=== PATIENT | male | born 1950 | race Caucasian/White ===

== ENCOUNTER 2018-03-01 08:42 | Inpatient (IN) | payer MEDICARE, MEDICAID ==
[~2018-03-01] VITALS: Ht 165.1 cm; Wt 106.4 kg
[2018-03-01 09:29] LABS: CHLORIDE 107 mEq/L (98-107); INR 1.1; PROTHROMBIN TIME 11.7 sec (9.4-11.6)
[2018-03-01 09:30] LABS: HEMATOCRIT. 34.9 % (42.0-52.0); HEMOGLOBIN. 11.7 g/dL (14.0-18.0); MEAN CORPUSCULAR HEMOGLOBIN 30.5 pg (28.0-32.0); MEAN CORPUSCULAR VOLUME 91.4 fL (80.0-94.0); PLATELET 289 x1000/uL (130-400); RED BLOOD CELL COUNT 3.82 mill/uL (4.7-6.1); RED CELL DISTRIBUTION WIDTH 14.7 % (11.6-14.6)
[2018-03-01 10:31] LABS: PLATELET ESTIMATE NORMAL
[2018-03-01] MEDS ORDERED: CALCIUM CHLORIDE 1GM/10ML SYR IV NR (11:15)
[2018-03-01] MEDS ORDERED: SODIUM BICARBONATE 8.4% 1 MEQ/ML 50ML SYR IV NR (11:15)
[2018-03-01] MEDS ORDERED: FUROSEMIDE 100MG/10ML VIAL IVP NR (11:15)
[2018-03-01] MEDS ORDERED: DEXTROSE 50% WATER 50ML SYRINGE IV NR (11:15)
[2018-03-01] MEDS ORDERED: INSULIN REGULAR (HUMULIN R) 300UNITS/3ML IV NR (11:15)
[2018-03-01 12:38] LABS: CLARITY URINE CLEAR (CLEAR); COLOR URINE YELLOW (YELLOW); KETONES URINE NEGATIVE (NEGATIVE); LEUKOCYTE ESTERASE URINE NEGATIVE (NEGATIVE); NITRITE URINE NEGATIVE (NEGATIVE); OCCULT BLOOD URINE NEGATIVE (NEGATIVE); PROTEIN URINE 2+ (NEGATIVE); SPECIFIC GRAVITY URINE 1.018 (1.005-1.030)
[2018-03-01] MEDS ORDERED: PANT40TA4 PO (15:13)
[2018-03-01] MEDS ORDERED: SPIR25TA4 PO (15:13)
[2018-03-01] MEDS ORDERED: FURO20TA4 PO (15:13)
[2018-03-01] MEDS ORDERED: AMIO100T4 PO (15:14)
[2018-03-01] MEDS ORDERED: CLOP75TA33 PO (15:14)
[2018-03-01] MEDS ORDERED: ISOS30TA6 PO (15:15)
[2018-03-01] MEDS ORDERED: CARV6.2548 PO (15:15)
[2018-03-01] MEDS ORDERED: GLIP5TAB12 PO (15:15)
[2018-03-01] MEDS ORDERED: ASPI-1159 PO (15:16)
[2018-03-01] MEDS ORDERED: TAMS0.4C31 PO (15:16)
[2018-03-01] MEDS ORDERED: ATOR40TA70 PO (15:17)
[2018-03-01] MEDS ORDERED: DOCU-150 PO (15:17)
[2018-03-01] MEDS ORDERED: SACU1TAB PO (15:17)
[2018-03-01 15:59] VITALS: BP 132/84
[2018-03-01 16:00] VITALS: BP 132/84
[2018-03-01] MEDS: CLOPIDOGREL 75MG TABLET PO SCH (17:00)
[2018-03-01 18:00] VITALS: BP 139/86
[2018-03-01] MEDS: FUROSEMIDE 40MG/4ML VIAL IVP SCH (18:06)
[2018-03-01] MEDS ORDERED: MAGNESIUM/ALUMINUM HYDROXIDE/SIMETHICONE 30ML UDC PO PRN (20:45)
[2018-03-01] MEDS ORDERED: CLONIDINE 0.1MG TABLET PO PRN (20:45)
[2018-03-01] MEDS ORDERED: DEXTROSE 50% WATER 50ML SYRINGE IV PRN (20:45)
[2018-03-01] MEDS ORDERED: DIPHENHYDRAMINE 50MG/ML VIAL IV PRN (20:45)
[2018-03-01] MEDS ORDERED: ONDANSETRON HCL 4MG/2ML VIAL IV PRN (20:45)
[2018-03-01] MEDS ORDERED: ACETAMINOPHEN 325MG TABLET PO PRN (20:45)
[2018-03-01] MEDS: INSULIN LISPRO 100 UNITS/ML SUBCUT SCH (21:00)
[2018-03-01] MEDS: SODIUM CHLORIDE 0.9% INJ 3ML FLUSH IVF SCH (21:42)
[2018-03-01] MEDS: CARVEDILOL 6.25 MG TABLET PO SCH (21:42)
[2018-03-01] MEDS: ATORVASTATIN CALCIUM 40MG TABLET PO SCH (21:42)
[2018-03-01] MEDS: BLOOD SUGAR DIAGNOSTIC STRIP TEST SCH (21:43)
[2018-03-01 22:00] VITALS: BP_SYST 118; BP_SYST 122; BP_DIAS 68; BP_DIAS 79
[2018-03-02] VITALS (12 sets, daily range): BP systolic 90–146; BP diastolic 50–99
[2018-03-02] MEDS: SODIUM CHLORIDE 0.9% INJ 3ML FLUSH IVF SCH ×3 (06:26→21:14)
[2018-03-02] MEDS: GLIPIZIDE 5MG TABLET PO SCH ×2 (06:27→16:20)
[2018-03-02] MEDS: INSULIN LISPRO 100 UNITS/ML SUBCUT SCH ×4 (06:27→21:00)
[2018-03-02] MEDS: BLOOD SUGAR DIAGNOSTIC STRIP TEST SCH ×4 (06:27→21:13)
[2018-03-02] MEDS: PANTOPRAZOLE 40MG DR TABLET PO SCH (06:27)
[2018-03-02] MEDS: AMIODARONE HCL 200 MG TABLET PO SCH (08:11)
[2018-03-02] MEDS: FUROSEMIDE 40MG/4ML VIAL IVP SCH ×2 (08:11→16:20)
[2018-03-02] MEDS: TAMSULOSIN HCL 0.4MG SR CAPSULE PO SCH (08:11)
[2018-03-02] MEDS: ASPIRIN 81MG EC TABLET PO SCH (08:11)
[2018-03-02] MEDS: ISOSORBIDE MONONITRATE 30MG TABLET SR 24HR PO SCH (08:12)
[2018-03-02] MEDS: CARVEDILOL 6.25 MG TABLET PO SCH ×2 (08:12→21:00)
[2018-03-02] MEDS: DOCUSATE SODIUM 100MG CAPSULE PO SCH ×2 (08:12→16:20)
[2018-03-02] MEDS: CLOPIDOGREL 75MG TABLET PO SCH (08:12)
[2018-03-02] MEDS: SPIRONOLACTONE 25MG TABLET PO SCH (08:12)
[2018-03-02 08:16] LABS: CHLORIDE 106 mEq/L (98-107)
[2018-03-02 08:27] LABS: BASOPHILS % 0.4 % (0.0-2.0); EOSINOPHILS % 3.6 % (0.0-5.0); HEMATOCRIT. 32.8 % (42.0-52.0); HEMOGLOBIN. 10.9 g/dL (14.0-18.0); MEAN CORPUSCULAR HEMOGLOBIN 29.8 pg (28.0-32.0); MEAN CORPUSCULAR VOLUME 90.1 fL (80.0-94.0); MEAN PLATELET VOLUME 7.1 fl (7.4-10.4); MONOCYTES % 9.5 % (2.0-8.0); NEUTROPHILS % 73.5 % (40.0-76.0); PLATELET 268 x1000/uL (130-400); RED BLOOD CELL COUNT 3.64 mill/uL (4.7-6.1); RED CELL DISTRIBUTION WIDTH 14.7 % (11.6-14.6)
[2018-03-02 08:35] LABS: CREATINE KINASE MB FRACTION 1.6 ng/mL (0.5-3.6); LDL CHOLESTEROL 126 mg/dL (5-100)
[2018-03-02 08:36] LABS: CREATINE KINASE 91 IU/L (39-308); HDL CHOLESTEROL 29 mg/dL (40-59)
[2018-03-02] MEDS ORDERED: ASPIRIN 81MG EC TABLET PO SCH (09:00)
[2018-03-02] MEDS ORDERED: CLOPIDOGREL 75MG TABLET PO SCH (09:00)
[2018-03-02] MEDS ORDERED: SPIRONOLACTONE 5MG/ML 1ML ORAL SYR(NEO) PO SCH (09:00)
[2018-03-02] MEDS ORDERED: CARVEDILOL 6.25 MG TABLET PO SCH (09:00)
[2018-03-02 12:55] LABS: *AMPHETAMINES SCREEN URINE NEGATIVE (NEGATIVE); *BARBITURATES SCREEN URINE NEGATIVE (NEGATIVE); *BENZODIAZEPINES SCREEN URINE NEGATIVE (NEGATIVE); *COCAINE SCREEN URINE NEGATIVE (NEGATIVE)
[2018-03-02 12:56] LABS: CANNABINOID URINE SCREEN NEGATIVE (NEGATIVE); METHADONE URINE SCREEN NEGATIVE (NEGATIVE); OPIATES URINE SCREEN NEGATIVE (NEGATIVE); PHENCYCLIDINE URINE SCREEN NEGATIVE (NEGATIVE)
[2018-03-02] MEDS: CEPHALEXIN 250MG CAPSULE PO SCH (17:14)
[2018-03-02] MEDS: ATORVASTATIN CALCIUM 40MG TABLET PO SCH (21:13)
[2018-03-03] VITALS (11 sets, daily range): BP systolic 108–137; BP diastolic 48–102
[2018-03-03] MEDS: CEPHALEXIN 250MG CAPSULE PO SCH ×4 (00:25→17:25)
[2018-03-03] MEDS: SODIUM CHLORIDE 0.9% INJ 3ML FLUSH IVF SCH ×3 (05:56→21:12)
[2018-03-03] MEDS: GLIPIZIDE 5MG TABLET PO SCH ×2 (05:57→16:29)
[2018-03-03] MEDS: BLOOD SUGAR DIAGNOSTIC STRIP TEST SCH ×4 (05:57→21:12)
[2018-03-03] MEDS: PANTOPRAZOLE 40MG DR TABLET PO SCH (05:57)
[2018-03-03] MEDS: INSULIN LISPRO 100 UNITS/ML SUBCUT SCH ×4 (06:21→21:00)
[2018-03-03 07:24] LABS: BASOPHILS % 0.6 % (0.0-2.0); EOSINOPHILS % 3.4 % (0.0-5.0); HEMATOCRIT. 32.8 % (42.0-52.0); LYMPHOCYTES % 15.3 % (20.0-50.0); MEAN CORPUSCULAR HEMOGLOBIN 29.8 pg (28.0-32.0); MEAN CORPUSCULAR VOLUME 89.4 fL (80.0-94.0); MONOCYTES % 10.1 % (2.0-8.0); NEUTROPHILS % 70.6 % (40.0-76.0); PLATELET 271 x1000/uL (130-400); RED BLOOD CELL COUNT 3.67 mill/uL (4.7-6.1); RED CELL DISTRIBUTION WIDTH 14.7 % (11.6-14.6)
[2018-03-03 07:54] LABS: CHLORIDE 105 mEq/L (98-107)
[2018-03-03] MEDS: FUROSEMIDE 40MG/4ML VIAL IVP SCH ×2 (08:03→16:29)
[2018-03-03] MEDS: CARVEDILOL 6.25 MG TABLET PO SCH ×2 (08:03→21:12)
[2018-03-03] MEDS: DOCUSATE SODIUM 100MG CAPSULE PO SCH ×2 (08:03→16:29)
[2018-03-03] MEDS: CLOPIDOGREL 75MG TABLET PO SCH (08:03)
[2018-03-03] MEDS: ASPIRIN 81MG EC TABLET PO SCH (08:03)
[2018-03-03 08:04] LABS: CREATINE KINASE 93 IU/L (39-308)
[2018-03-03] MEDS: TAMSULOSIN HCL 0.4MG SR CAPSULE PO SCH (08:04)
[2018-03-03] MEDS: AMIODARONE HCL 200 MG TABLET PO SCH (08:04)
[2018-03-03] MEDS: SPIRONOLACTONE 25MG TABLET PO SCH (08:04)
[2018-03-03] MEDS: ISOSORBIDE MONONITRATE 30MG TABLET SR 24HR PO SCH (08:04)
[2018-03-03 08:07] LABS: CREATINE KINASE MB FRACTION 1.3 ng/mL (0.5-3.6)
[2018-03-03] MEDS: LOSARTAN POTASSIUM 25 MG TABLET PO SCH (11:00)
[2018-03-03] MEDS: ENOXAPARIN 40MG/0.4ML SYR SUBCUT SCH (16:29)
[2018-03-03] MEDS: BUDESONIDE 0.5MG/2ML NEB HHN SCH (20:29)
[2018-03-03] MEDS: IPRATROPIUM/ALBUTEROL 0.5-3(2.5)MG/3ML NEB HHN SCH (20:29)
[2018-03-03] MEDS: ATORVASTATIN CALCIUM 40MG TABLET PO SCH (21:11)
[2018-03-04] VITALS (8 sets, daily range): BP systolic 14–132; BP diastolic 42–97
[2018-03-04] MEDS: CEPHALEXIN 250MG CAPSULE PO SCH ×3 (00:11→11:26)
[2018-03-04] MEDS: IPRATROPIUM/ALBUTEROL 0.5-3(2.5)MG/3ML NEB HHN SCH ×3 (01:53→13:52)
[2018-03-04] MEDS: BLOOD SUGAR DIAGNOSTIC STRIP TEST SCH ×2 (06:21→11:17)
[2018-03-04] MEDS: GLIPIZIDE 5MG TABLET PO SCH (06:21)
[2018-03-04] MEDS: INSULIN LISPRO 100 UNITS/ML SUBCUT SCH ×2 (06:21→11:17)
[2018-03-04] MEDS: SODIUM CHLORIDE 0.9% INJ 3ML FLUSH IVF SCH ×2 (06:21→14:00)
[2018-03-04 07:29] LABS: BASOPHILS % 0.6 % (0.0-2.0); HEMATOCRIT. 34.2 % (42.0-52.0); HEMOGLOBIN. 11.5 g/dL (14.0-18.0); LYMPHOCYTES % 13.9 % (20.0-50.0); MEAN CORPUSCULAR HEMOGLOBIN 29.8 pg (28.0-32.0); MEAN CORPUSCULAR VOLUME 88.8 fL (80.0-94.0); NEUTROPHILS % 69.5 % (40.0-76.0); PLATELET 280 x1000/uL (130-400); RED BLOOD CELL COUNT 3.85 mill/uL (4.7-6.1); RED CELL DISTRIBUTION WIDTH 14.5 % (11.6-14.6)
[2018-03-04 07:31] LABS: CHLORIDE 101 mEq/L (98-107)
[2018-03-04] MEDS: FUROSEMIDE 40MG/4ML VIAL IVP SCH (08:36)
[2018-03-04] MEDS: CLOPIDOGREL 75MG TABLET PO SCH (08:36)
[2018-03-04] MEDS: CARVEDILOL 6.25 MG TABLET PO SCH (08:36)
[2018-03-04] MEDS: TAMSULOSIN HCL 0.4MG SR CAPSULE PO SCH (08:36)
[2018-03-04] MEDS: SPIRONOLACTONE 25MG TABLET PO SCH (08:37)
[2018-03-04] MEDS: DOCUSATE SODIUM 100MG CAPSULE PO SCH (08:37)
[2018-03-04] MEDS: ASPIRIN 81MG EC TABLET PO SCH (08:37)
[2018-03-04] MEDS: ISOSORBIDE MONONITRATE 30MG TABLET SR 24HR PO SCH (08:37)
[2018-03-04] MEDS: AMIODARONE HCL 200 MG TABLET PO SCH (08:38)
[2018-03-04] MEDS: BUDESONIDE 0.5MG/2ML NEB HHN SCH (08:58)
[2018-03-04] MEDS: LOSARTAN POTASSIUM 25 MG TABLET PO SCH (09:00)
[2018-03-04] MEDS ORDERED: FAMOTIDINE 20MG TABLET PO SCH (09:00)
[2018-03-04] MEDS: ENOXAPARIN 40MG/0.4ML SYR SUBCUT SCH (15:00)
== END 2018-03-04 14:54 | disposition home or self-care (01) | DRG 291 ==
LOC: ER 08:55 → 3WST 12:36 → EDBEDREQ 12:43 → EDBEDREQTM 12:43 → ENRESERV 14:18
PROVIDERS: ADMIT Internal Medicine; ATTEND Internal Medicine
PROC: 5A09457 Assistance with Respiratory Ventilation, 24-96 Consecutive Hours, Continuous Positive Airway Pressure (ICD-10-PCS; principal; 2018-03-01)
DX: I13.0 Hypertensive heart and chronic kidney disease with heart failure and stage 1 through stage 4 chronic kidney disease, or unspecified chronic kidney disease (principal); I50.23 Acute on chronic systolic (congestive) heart failure; J96.01 Acute respiratory failure with hypoxia; E44.1 Mild protein-calorie malnutrition; I42.0 Dilated cardiomyopathy; E66.01 Morbid (severe) obesity due to excess calories; I25.10 Atherosclerotic heart disease of native coronary artery without angina pectoris; N18.9 Chronic kidney disease, unspecified; I80.8 Phlebitis and thrombophlebitis of other sites; E87.5 Hyperkalemia; E11.22 Type 2 diabetes mellitus with diabetic chronic kidney disease; E78.00 Pure hypercholesterolemia, unspecified; E78.5 Hyperlipidemia, unspecified; F17.210 Nicotine dependence, cigarettes, uncomplicated; I25.5 Ischemic cardiomyopathy; M19.90 Unspecified osteoarthritis, unspecified site; N40.0 Benign prostatic hyperplasia without lower urinary tract symptoms; Z79.02 Long term (current) use of antithrombotics/antiplatelets; Z82.49 Family history of ischemic heart disease and other diseases of the circulatory system; I25.2 Old myocardial infarction; Z83.3 Family history of diabetes mellitus; Z95.5 Presence of coronary angioplasty implant and graft; Z95.810 Presence of automatic (implantable) cardiac defibrillator; Z79.84 Long term (current) use of oral hypoglycemic drugs; Z79.899 Other long term (current) drug therapy; Z68.39 Body mass index [BMI] 39.0-39.9, adult
CPT/HCPCS: 36415; 71045; 78582; 80053; 80061; 80305; 81003; 82550; 82553; 82962; 83036; 83605; 83735; 83880; 84443; 84484; 85025; 85379; 85610; 87040; 87086; 93005; 93306; 93971; 94640; 94660; 96374; 96375; 97162; 99291; A9558; J1650; J1815; J1940; J3490; J7030; J7620; J7626